=== PATIENT | male | born 1955 | race Caucasian/White ===

== ENCOUNTER 2016-10-22 10:35 | Emergency (ER) | payer BC, OTHER ==
[2016-10-22] MEDS ORDERED: TETANUS/DIPHTHERIA/PERTUSSIS 0.5 ML SYRINGE IM ONE ×2 (11:09→13:08)
[2016-10-22] MEDS ORDERED: BUFFERED LIDOCAINE 10 ML SYRINGE ONE (12:55)
[2016-10-22] MEDS ORDERED: CEPHALEXIN 250 MG CAPSULE PO STA (13:01)
[2016-10-22] MEDS ORDERED: CEPHALEXIN 250 MG CAPSULE PO ONE (13:08)
== END 2016-10-22 14:14 | disposition home or self-care (01) ==
DX: S62.632B Displaced fracture of distal phalanx of right middle finger, initial encounter for open fracture (principal); Z79.82 Long term (current) use of aspirin; W29.8XXA Contact with other powered hand tools and household machinery, initial encounter; I25.10 Atherosclerotic heart disease of native coronary artery without angina pectoris; E78.00 Pure hypercholesterolemia, unspecified; Z95.1 Presence of aortocoronary bypass graft; Z23 Encounter for immunization; R03.0 Elevated blood-pressure reading, without diagnosis of hypertension
CPT/HCPCS: 12001; 73140; 90471; 90715; 99283; A9270

== ENCOUNTER 2016-11-13 16:11 | Outpatient (CLI) | payer OTHER | END 2016-11-13 16:12 | disposition home or self-care (01) | DX: S62.632D Displaced fracture of distal phalanx of right middle finger, subsequent encounter for fracture with routine healing (principal) ==